=== PATIENT | female | born 1945 | race African-American/Black ===

== ENCOUNTER 2017-10-29 00:57 | Emergency (ER) | payer MEDICARE, OTHER ==
[~2017-10-29] VITALS: Ht 167.6 cm; Wt 72.6 kg
[2017-10-29 01:44] LABS: BASOPHILS % 0.7 % (0.0-2.0); HEMOGLOBIN. 12.9 g/dL (12.0-16.0); LYMPHOCYTES % 39.8 % (20.0-50.0); MEAN PLATELET VOLUME 8.5 fl (7.4-10.4); MONOCYTES % 10.1 % (2.0-8.0); NEUTROPHILS % 46.4 % (40.0-76.0); PLATELET 229 x1000/uL (130-400); RED BLOOD CELL COUNT 4.75 mill/uL (4.2-5.4); RED CELL DISTRIBUTION WIDTH 13.7 % (11.6-14.6)
[2017-10-29 01:48] LABS: INR 1.1; PROTHROMBIN TIME 11.1 sec (9.4-11.6)
[2017-10-29 01:50] LABS: CHLORIDE 106 mEq/L (98-107); TROPONIN I < 0.02 ng/mL (0.00-0.04)
[2017-10-29] MEDS ORDERED: LABETALOL 5MG/ML SYR 20 MG/4 ML SYRINGE IV ONE (02:30)
[2017-10-29 03:30] VITALS: BP 165/84
[2017-10-29] MEDS ORDERED: KETOROLAC 30MG/ML VIAL IV ONE (03:30)
== END 2017-10-29 05:02 | disposition home or self-care (01) ==
LOC: ER 03:45
DX: I10 Essential (primary) hypertension (principal); G93.40 Encephalopathy, unspecified
CPT/HCPCS: 36415; 70450; 71045; 80053; 84484; 85025; 85610; 93005; 96374; 99285; J1885